=== PATIENT | male | born 1955 | race Caucasian/White ===

== ENCOUNTER 2017-12-28 11:18 | Day surgery (SDC) | payer BC ==
[2017-12-28] MEDS ORDERED: cefOXitin 2 GM, Syringe 1 ML in Sterile Water 10 ML SLOW IVP SCH (12:15)
[2017-12-28] MEDS ORDERED: Sodium Chloride 0.9% 1,000 ML IV SCH ×2 (12:15)
[2017-12-28 12:22] LABS: Hemoglobin 18.5 g/dL (14.0-18.0); Mean Corpuscular HGB CONC 33.6 g/dL (32.0-36.0); Mean Corpuscular Hemoglobin 32.9 pg (27.0-31.0); Mean Platelet Volume 8.2 fL (7.4-10.4); Platelet Count 179 thou/uL (130-400); RBC Distribution Width 11.7 % (11.5-14.5); Red Blood Cell (RBC) Count 5.63 mill/uL (4.70-6.10); White Blood Cell (WBC) Count 16.3 thou/uL (4.8-10.8)
[2017-12-28 13:01] LABS: ALT (SGPT) 23 U/L (8-55); AST (SGOT) 12 U/L (5-34); Albumin 3.7 g/dL (3.4-4.8); Alkaline Phosphatase 75 U/L (40-150); Anion Gap 13 mmol/L (10-20); BUN (Urea Nitrogen) 16 mg/dL (8.4-25.7); Bilirubin, Total 2.3 mg/dL (0.2-1.2); Calc. Creatinine Clearance 0 mL/min (70-130); Calcium 9.4 mg/dL (7.8-10.44); Carbon Dioxide 26 mmol/L (23-31); Chloride 100 mmol/L (98-107); Estimated GFR-MDRD 84; Globulin 3.2 g/dL (2.4-3.5); Glucose 242 mg/dL (80-115); Lipase 8 U/L (8-78); Potassium 4.4 mmol/L (3.5-5.1); Protein, Total 6.9 g/dL (5.8-8.1); Sodium 135 mmol/L (136-145)
[2017-12-28] MEDS ORDERED: Bupivacaine HCl 0.5%/Epinephrine 1:200,000/PF 30 ml Vial ONE (13:47)
[2017-12-28] MEDS ORDERED: Fentanyl 100 MCG/2 ML VIAL ONE ×2 (13:54→14:56)
[2017-12-28] MEDS ORDERED: Iothalamate Meglumine 60% 50 ML VIAL FS ONE (14:27)
--- NOTE | 2017-12-28 16:17 | OP ---
DATE OF PROCEDURE: 12/28/2017 PREOPERATIVE DIAGNOSIS: Acute cholecystitis. POSTOPERATIVE DIAGNOSIS: Acute cholecystitis. PROCEDURE: Laparoscopic cholecystectomy with intraoperative cholangiogram. SURGEON: Dawson Smith M.D. ANESTHESIA: General. ESTIMATED BLOOD LOSS: Minimal. COMPLICATIONS: None. SPECIMEN: Gallbladder. FINDINGS: Normal cholangiogram. TECHNIQUE: The patient was taken to the operating room and placed supine on the table. After genera l anesthetic was obtained, the abdomen was shaved, prepped and draped in a sterile fashion. Curved i ncision made below the umbilicus. Cautery was used to dissect down to and score the fascia. Abdomin al cavity entered bluntly using a Preethi clamp. Holding stitch of PDS was placed on each side of the fascia. [place] trocar was placed. High-flow pneumoperitoneum obtained. An upper midline 5-mm port and 2 right upper quadrant 5-mm ports were placed under direct camera visualization. The gallbladder was retracted from the gallbladder fossa. The peritoneum was opened anteriorly and posteriorly. Th e critical view triangle was seen showing only the cystic duct and cystic artery branching from media l to lateral. There were no other branching structures. Clip was placed high on the cystic duct. A small ductotomy was made just proximal to that. A cholangiocatheter was brought in through a separa te stab incision and placed into the cystic duct. Cholangiogram was performed which shows good contr ast flow into the duodenum without obstruction. Cholangiocatheter was removed. Two clips were place d proximally in the cystic duct and one distally, and cut using laparoscopic scissors. Cystic artery was taken using 2 clips proximally, one clip distally, and cut using laparoscopic scissors. Cautery was used to dissect the gallbladder out of the gallbladder fossa. The gallbladder was placed in an Endo catch bag and brought out through the [place]. All port sites were infiltrated using local anest hetic. There was no bleeding in the liver bed. The ports were all removed under direct visualizatio n without bleeding. Pneumoperitoneum was let down. PDS was used to close the fascial defect below t he umbilicus. All incisions were irrigated and closed using 4-0 Monocryl and Dermabond. The patient was en route to recovery in stable condition. All instrument counts, needle counts, and lap counts were correct.
--- NOTE | 2017-12-28 16:25 | RAD ---
INTRAOPERATIVE CHOLANGIOGRAM: Date: 12-28-17 History: Cholecystectomy in Operating Room. FINDINGS: A single intraoperative fluoroscopic image of the right upper quadrant is submitted for interpretatio n. Surgical instruments overlie the right upper quadrant, the cystic duct is cannulated. Small portio n of the common duct is excluded due to overlying surgical instruments but the common duct and visual ized intrahepatic ducts do appear patent without persistent filling defect visualized. There is a sma ll outpouching seen involving the distal common duct which could represent a small choledochal cyst. There is free spill of contrast into the small bowel. IMPRESSION: 1. Normal caliber visualized intrahepatic as well as extrahepatic bowel ducts without evidence of a p ersistent filling defect. Free spill of contrast into the duodenum is present. 2. Small focal outpouching of contrast distal common duct which could represent a small Type II jyoti dochal cyst or incomplete filling of an accessory pancreatic duct. POS: DOMINGA
--- NOTE | 2017-12-28 17:15 | EKG ---
Test Reason : PREOP Blood Pressure : / mmHG Vent. Rate : 073 BPM Atrial Rate : 073 BPM P-R Int : 164 ms QRS Dur : 106 ms QT Int : 422 ms P-R-T Axes : 032 -24 000 degrees QTc Int : 464 ms Normal sinus rhythm Minimal voltage criteria for LVH, may be normal variant Nonspecific ST-T changes No previous ECGs available Confirmed by DR. Buddy HERCULES ([id number]) on 12/28/2017 5:15:23 PM Referred By: ERIC Confirmed By:DR. Buddy HERCULES
== END 2017-12-28 17:00 | disposition home or self-care (01) ==
LOC: SDC 11:18
PROVIDERS: ATTEND Surgery
PROC: 0FT44ZZ Resection of Gallbladder, Percutaneous Endoscopic Approach (ICD-10-PCS; principal; 2017-12-28)
PROC: BF0CYZZ Plain Radiography of Hepatobiliary System, All using Other Contrast (ICD-10-PCS; principal; 2017-12-28)
DX: K81.0 Acute cholecystitis (principal); K82.8 Other specified diseases of gallbladder
CPT/HCPCS: 36415; 47532; 80053; 83690; 85027; 88304; 93005; 93010; A4216; J0670; J0694; J3010; Q9961